=== PATIENT | male | born 1995 | race American Indian/Alaskan Native ===

== ENCOUNTER 2018-03-27 13:14 | Emergency (ER) | payer SELFPAY ==
--- NOTE | 2018-03-27 14:08 | Emergency Department Report ---
ED Psych HPI - General Stated Complaint: SUICIDAL Time Seen by Provider: 03/27/18 14:06 Source: patient, EMS Mode of arrival: Stretcher Limitations: No Limitations - History of Present Illness Initial Comments: She is a 22-year-old male Emergency room with complaints of depression 4 years. Patient states depression is worsening. Patient states that his friend called EMS because she believed that he was overdosing on medications. Patient states that he never took any medications dosages EMPTY bottles. Patient denies suicidal ideations. Patient denies suicide attempt. Patient denies taking medications or pills. Patient denies homicidal ideations. Patient states he is depressed and just wants a referral to an outpatient clinic. Patient denies audio or visual hallucinations. Patient denies physical complaints/ mother is at bedside. Mother states the patient never took any pills. Mother confirms patient's story. MD Complaint: feels depressed -: Gradual Associated Psychiatric Symptoms: depression History of same: Yes Quality: constant Improves With: medication, therapy Worsens With: other Context: significant life stressor Associated Symptoms: denies: confusion, headache, shortness of breath, nausea, vomiting, syncope, insomnia Treatments Prior to Arrival: none - Related Data Previous Rx's Medication Instructions Recorded Last Taken Type Acetaminophen/Codeine 1 tab PO Q6H PRN #10 tab 05/19/14 Unknown Rx [Acetaminophen-Codeine #3 TAB] Azithromycin [Zithromax Z-ELIZABETH] 250 mg PO DAILY #6 tablet 05/19/14 Unknown Rx Ondansetron [Zofran Odt] 4 mg PO Q6H #6 tab.rapdis 05/19/14 Unknown Rx Allergies Allergy/AdvReac Type Severity Reaction Status Date / Time No Known Allergies Allergy Verified 05/19/14 07:55 ED Review of Systems ROS: Stated complaint: SUICIDAL Other details as noted in HPI Constitutional: denies: chills, fever Eyes: denies: eye pain, eye discharge, vision change ENT: denies: ear pain, throat pain Respiratory: denies: cough, shortness of breath, wheezing Cardiovascular: denies: chest pain, palpitations Endocrine: no symptoms reported Gastrointestinal: denies: abdominal pain, nausea, diarrhea Genitourinary: denies: urgency, dysuria Musculoskeletal: denies: back pain, joint swelling, arthralgia Skin: denies: rash, lesions Neurological: denies: headache, weakness, paresthesias Psychiatric: depression. denies: anxiety, auditory hallucinations, visual hallucinations, homicidal thoughts, suicidal thoughts Hematological/Lymphatic: denies: easy bleeding, easy bruising ED Past Medical Hx - Past Medical History Previous Medical History?: Yes Hx Asthma: Yes - Surgical History Past Surgical History?: Yes Additional Surgical History: Tonsillectomy - Family History Family history: no significant - Social History Smoking Status: Current Every Day Smoker Substance Use Type: None - Medications Home Medications: Home Medications Medication Instructions Recorded Confirmed Last Taken Type Acetaminophen/Codeine 1 tab PO Q6H PRN #10 tab 05/19/14 Unknown Rx [Acetaminophen-Codeine #3 TAB] Azithromycin [Zithromax Z-ELIZABETH] 250 mg PO DAILY #6 tablet 05/19/14 Unknown Rx Ondansetron [Zofran Odt] 4 mg PO Q6H #6 tab.rapdis 05/19/14 Unknown Rx ED Physical Exam - General Limitations: No Limitations General appearance: alert, in no apparent distress - Head Head exam: Present: atraumatic, normocephalic - Eye Eye exam: Present: normal appearance - ENT ENT exam: Present: mucous membranes moist - Neck Neck exam: Present: normal inspection - Respiratory Respiratory exam: Present: normal lung sounds bilaterally. Absent: respiratory distress - Cardiovascular Cardiovascular Exam: Present: regular rate, normal rhythm. Absent: systolic murmur, diastolic murmur, rubs, gallop - GI/Abdominal GI/Abdominal exam: Present: soft, normal bowel sounds - Rectal Rectal exam: Present: deferred - Extremities Exam Extremities exam: Present: normal inspection - Back Exam Back exam: Present: normal inspection - Neurological Exam Neurological exam: Present: alert, oriented X3 - Psychiatric Psychiatric exam: Present: normal affect, normal mood - Skin Skin exam: Present: warm, dry, intact, normal color. Absent: rash ED Course Vital Signs 03/27/18 14:10 Temperature 98.3 F Pulse Rate 76 Respiratory 16 Rate Blood Pressure 131/92 O2 Sat by Pulse 99 Oximetry - Reevaluation(s) Reevaluation #1: Patient is psychiatrically cleared. Patient denies suicidal or homicidal ideations. Patient will be discharged after mental health evaluation. We'll have mental health give the patient resources for outpatient follow-up. 03/27/18 14:06 ED Medical Decision Making - Medical Decision Making Patient is 22-year-old male presents emergency room for depression. Patient asked for all portion of resources however patient eloped after being seen. Unable to complete visit the patient eloping from hospital. - Differential Diagnosis depression. Anxiety. Critical care attestation.: If time is entered above; I have spent that time in minutes in the direct care of this critically ill patient, excluding procedure time. ED Disposition Clinical Impression: Depression Disposition: ELOPED Is pt being admited?: No Does the pt Need Aspirin: No Condition: Undetermined Referrals: PRIMARY CARE, [Primary Care Provider] - 3-5 Days Time of Disposition: 14:40
[2018-03-27 14:26] VITALS: BP 131/92
== END 2018-03-27 15:03 | disposition left against medical advice (07) ==
LOC: EEVIPCON 13:14 → ED 13:14
DX: F32.9 Major depressive disorder, single episode, unspecified (principal); J45.909 Unspecified asthma, uncomplicated; F17.200 Nicotine dependence, unspecified, uncomplicated; Z90.89 Acquired absence of other organs
CPT/HCPCS: 99283

== ENCOUNTER 2021-09-19 20:45 | Emergency (ER) | payer SELFPAY ==
[2021-09-19 20:51] VITALS: BP 110/78
--- NOTE | 2021-09-20 01:14 | Emergency Department Report ---
ED General Adult HPI - General Chief complaint: Urogenital-Female Stated complaint: PENILE PAIN/FLUID Source: patient Mode of arrival: Ambulatory Limitations: No Limitations - History of Present Illness Initial comments: Patient is a 26-year-old male with a history of HIV and asthma presents to the ED with complaint of acute onset persistent painful ulcerated lesions in the hany ins bilaterally as well as in the gluteal cleft for the last 2 months. Patient states that his primary care physician initially prescribed an antibiotic for him that he took 7 days but that this medication did not help control his infections. Patient states that in the last 2 weeks, these lesions have multiplied and worsened. Patient denies fever, chills, nausea and vomiting, traumatic injury, penile discharge, testicular pain, hematuria, dysuria, urinary frequency and urgency chest pain or shortness of breath. MD Complaint: painful open sores on the groins and buttocks -: Gradual, month(s) (2) Location: genitals, buttocks Radiation: non-radiation Severity scale (0 -10): 7 Quality: aching, sharp Consistency: constant Improves with: none Worsens with: movement Associated Symptoms: denies other symptoms, rash (Ulcerated lesions in the groins bilaterally as well as in the buttocks with thick purulent discharge). denies: confusion, chest pain, cough, fever/chills, headaches, malaise, nausea/vomiting Treatments Prior to Arrival: none - Related Data Previous Rx's Medication Instructions Recorded Last Taken Type Acetaminophen/Codeine 1 tab PO Q6H PRN #10 tab 05/19/14 Unknown Rx [Acetaminophen-Codeine #3 TAB] Azithromycin [Zithromax Z-ELIZABETH] 250 mg PO DAILY #6 tablet 05/19/14 Unknown Rx Ondansetron [Zofran Odt] 4 mg PO Q6H #6 tab.rapdis 05/19/14 Unknown Rx Clindamycin [Clindamycin CAP] 300 mg PO Q6H #40 cap 09/20/21 Unknown Rx Griseofulvin, Microsize 500 mg PO DAILY #30 tab 09/20/21 Unknown Rx [Griseofulvin] Ibuprofen [Motrin] 800 mg PO Q8HR PRN #30 tablet 09/20/21 Unknown Rx Mupirocin [Bactroban 2% OINT] 1 applic TP TID #1 tube 09/20/21 Unknown Rx rifAMPin [Rifadin] 300 mg PO Q12H #20 cap 09/20/21 Unknown Rx traMADoL [Ultram] 50 mg PO Q6HR PRN #10 tablet 09/20/21 Unknown Rx Allergies Allergy/AdvReac Type Severity Reaction Status Date / Time No Known Allergies Allergy Verified 05/19/14 07:55 ED Review of Systems ROS: Stated complaint: PENILE PAIN/FLUID Other details as noted in HPI Constitutional: denies: chills, fever Eyes: denies: eye pain, eye discharge, vision change ENT: denies: ear pain, throat pain Respiratory: denies: cough, shortness of breath, wheezing Cardiovascular: denies: chest pain, palpitations Endocrine: no symptoms reported Gastrointestinal: denies: abdominal pain, nausea, diarrhea Genitourinary: denies: urgency, dysuria Musculoskeletal: denies: back pain, joint swelling, arthralgia Skin: rash (Ulcerated painful lesions in the groins and gluteal cleft with purulent discharge). denies: lesions Neurological: denies: headache, weakness, paresthesias Psychiatric: denies: anxiety, depression Hematological/Lymphatic: denies: easy bleeding, easy bruising ED Past Medical Hx - Past Medical History Hx Asthma: Yes Hx HIV: Yes - Surgical History Additional Surgical History: Tonsillectomy - Social History Smoking Status: Never Smoker Substance Use Type: Alcohol, Marijuana - Medications Home Medications: Home Medications Medication Instructions Recorded Confirmed Last Taken Type Acetaminophen/Codeine 1 tab PO Q6H PRN #10 tab 05/19/14 Unknown Rx [Acetaminophen-Codeine #3 TAB] Azithromycin [Zithromax Z-ELIZABETH] 250 mg PO DAILY #6 tablet 05/19/14 Unknown Rx Ondansetron [Zofran Odt] 4 mg PO Q6H #6 tab.rapdis 05/19/14 Unknown Rx Clindamycin [Clindamycin CAP] 300 mg PO Q6H #40 cap 09/20/21 Unknown Rx Griseofulvin, Microsize 500 mg PO DAILY #30 tab 09/20/21 Unknown Rx [Griseofulvin] Ibuprofen [Motrin] 800 mg PO Q8HR PRN #30 tablet 09/20/21 Unknown Rx Mupirocin [Bactroban 2% OINT] 1 applic TP TID #1 tube 09/20/21 Unknown Rx rifAMPin [Rifadin] 300 mg PO Q12H #20 cap 09/20/21 Unknown Rx traMADoL [Ultram] 50 mg PO Q6HR PRN #10 tablet 09/20/21 Unknown Rx ED Physical Exam - General Limitations: No Limitations General appearance: alert, in no apparent distress - Head Head exam: Present: atraumatic, normocephalic, normal inspection - Eye Eye exam: Present: normal appearance, PERRL, EOMI Pupils: Present: normal accommodation - ENT ENT exam: Present: normal exam, normal orophraynx, mucous membranes moist, TM's normal bilaterally, normal external ear exam - Neck Neck exam: Present: normal inspection, full ROM. Absent: tenderness - Respiratory Respiratory exam: Present: normal lung sounds bilaterally. Absent: respiratory distress, wheezes, rales, rhonchi, chest wall tenderness, accessory muscle use, decreased breath sounds - Cardiovascular Cardiovascular Exam: Present: regular rate, normal rhythm, normal heart sounds. Absent: systolic murmur, diastolic murmur, rubs, gallop - GI/Abdominal GI/Abdominal exam: Present: soft, normal bowel sounds. Absent: tenderness, guarding, rebound, hyperactive bowel sounds, hypoactive bowel sounds - exam: Present: other (Multiple ulcerated tender lesions with purulent discharge). Absent: testicular tenderness, urethral discharge, scrotal swelling, vertical testicular lie External exam: Present: erythema, lesions (Multiple ulcerated lesions with tenderness and purulent discharge bilaterally in the groins and gluteal cleft), other (Female RN crude oil driver Ms. Lane present). Absent: swelling - Extremities Exam Extremities exam: Present: normal inspection, full ROM, normal capillary refill - Back Exam Back exam: Present: normal inspection, full ROM. Absent: tenderness, CVA tenderness (R), CVA tenderness (L), muscle spasm, paraspinal tenderness, vertebral tenderness - Neurological Exam Neurological exam: Present: alert, oriented X3, CN II-XII intact, normal gait, reflexes normal - Psychiatric Psychiatric exam: Present: normal affect, normal mood - Skin Skin exam: Present: warm, dry, intact, normal color, rash (Multiple ulcerated tender lesions with thick purulent discharge in the gluteal cleft as well as bilaterally in the groins), erythema. Absent: petechiae, abrasion ED Course Vital Signs 09/19/21 20:50 Temperature 98.2 F Pulse Rate 99 H Respiratory 18 Rate Blood Pressure 110/78 O2 Sat by Pulse 98 Oximetry ED Medical Decision Making - Medical Decision Making This is a 26-year-old male with a history of HIV and asthma presents to the ED with complaint of acute onset persistent painful ulcerated lesions in the groins bilaterally as well as in the gluteal cleft for the last 2 months. Patient states that his primary care physician initially prescribed an antibiotic for him that he took 7 days but that this medication did not help control his infe ctions. Patient states that in the last 2 weeks, these lesions have multiplied and worsened. In the ED, patient is alert and oriented x3 and is not in any distress. Patient was treated for pain in the ED and also given initial oral antibiotics in the ED. Patient was discharged home on medications and advised to follow-up with his primary care physician in 7 to 10 days for reevaluation or return to the ED immediately if symptoms get worse. - Differential Diagnosis Jock itch; cellulitis; acute folliculitis; hidradenitis suppurativa Critical care attestation.: If time is entered above; I have spent that time in minutes in the direct care of this critically ill patient, excluding procedure time. ED Disposition Clinical Impression: Jock itch, Hidradenitis suppurativa, Cellulitis and abscess of buttock Disposition: 01 HOME / SELF CARE / HOMELESS Is pt being admited?: No Does the pt Need Aspirin: No Condition: Stable Instructions: Cellulitis, Adult, [id number], Hidradenitis Suppurativa, Jock Itch, [id number], Skin Abscess, [id number] Additional Instructions: Take medication with food, drink plenty of fluids and follow-up with your primary care physician in 7 to 10 days for reevaluation. Return to the ED immediately if symptoms get worse Prescriptions: Mupirocin [Bactroban 2% OINT] 1 applic TP TID #1 tube Clindamycin [Clindamycin CAP] 300 mg PO Q6H #40 cap Griseofulvin, Microsize [Griseofulvin] 500 mg PO DAILY #30 tab Ibuprofen [Motrin] 800 mg PO Q8HR PRN #30 tablet PRN Reason: Pain , Severe (7-10) rifAMPin [Rifadin] 300 mg PO Q12H #20 cap traMADoL [Ultram] 50 mg PO Q6HR PRN #10 tablet PRN Reason: Pain Referrals: MARISOL COCHRAN MD [Primary Care Provider] - 3-5 Days Time of Disposition: 01:18 Print Language: MONTENEGRIN
[2021-09-20] MEDS: HYDROcodone/ACETAMINOPHEN 7.5-325MG TAB PO ONE (01:29)
[2021-09-20] MEDS: SULFAMETHOXAZOLE/TRIMETHOPRIM 800/160MG DS TAB PO ONE (01:30)
[2021-09-20] MEDS: CLINDAMYCIN 300 MG CAP PO ONE (01:30)
[2021-09-20] MEDS: ONDANSETRON 4 MG ODT TAB PO ONE (01:30)
== END 2021-09-20 01:40 | disposition home or self-care (01) ==
LOC: ED 20:45
DX: B35.6 Tinea cruris (principal); L73.2 Hidradenitis suppurativa; L03.317 Cellulitis of buttock; L02.31 Cutaneous abscess of buttock; J45.909 Unspecified asthma, uncomplicated; F12.90 Cannabis use, unspecified, uncomplicated; Z72.89 Other problems related to lifestyle; Z90.89 Acquired absence of other organs; Z79.899 Other long term (current) drug therapy
CPT/HCPCS: 99282; J3490; Q0162